=== PATIENT | male | born 1960 | race African-American/Black ===

== ENCOUNTER 2018-03-03 01:04 | Inpatient (IN) | payer MEDICAID ==
[2018-03-03] VITALS (9 sets, daily range): BP systolic 111–124; BP diastolic 66–76
[~2018-03-03] VITALS: Ht 167.6 cm; Wt 56.0 kg
[2018-03-03] MEDS ORDERED: OCTREOTIDE ACETATE 50 MCG/ML 1ML IV STA (02:50)
[2018-03-03] MEDS ORDERED: PANTOPRAZOLE SODIUM 40 MG/VIAL IV STA (02:50)
[2018-03-03] MEDS ORDERED: SODIUM CHLORIDE 0.9% 1,000 ML IV ONE (02:50)
[2018-03-03 06:00] LABS: HEMATOCRIT. 33.6 % (42.0-52.0); HEMOGLOBIN. 10.7 g/dL (14.0-18.0); MEAN CORPUSCULAR HEMOGLOBIN 28.2 pg (28.0-32.0); MEAN CORPUSCULAR VOLUME 88.6 fL (80.0-94.0); MEAN PLATELET VOLUME 8.4 fl (7.4-10.4); PLATELET 259 x1000/uL (130-400); RED CELL DISTRIBUTION WIDTH 15.8 % (11.6-14.6)
[2018-03-03 06:08] LABS: INR 1.1; PROTHROMBIN TIME 11.4 sec (9.4-11.6)
[2018-03-03 06:09] LABS: CHLORIDE 104 mEq/L (98-107)
[2018-03-03] MEDS ORDERED: PANTOPRAZOLE SODIUM 40 MG/VIAL IV ONE (06:45)
[2018-03-03 07:01] LABS: PLATELET ESTIMATE NORMAL
[2018-03-03] MEDS ORDERED: LEVOFLOXACIN 750MG PREMIX 150 ML IV ONE (07:30)
[2018-03-03] MEDS ORDERED: DOCUSATE SODIUM 100MG CAPSULE PO PRN (10:30)
[2018-03-03] MEDS ORDERED: CLONIDINE 0.1MG TABLET PO PRN (10:30)
[2018-03-03] MEDS ORDERED: ACETAMINOPHEN 650MG SUPP PR PRN (10:30)
[2018-03-03] MEDS ORDERED: MORPHINE SULFATE 4 MG/ML CPJ (NOT FOR IM USE) IV PRN (11:00)
[2018-03-03] MEDS: HYDROCODONE/ACETAMINOPHEN 5/325MG TABLET PO PRN (11:54)
[2018-03-03] MEDS: DEXT 5%/0.45% NACL 1000ML 1,000 ML IV SCH (11:55)
[2018-03-03] MEDS ORDERED: RACEPINEPHRINE 2.25% 0.5ML NEB VIAL HHN PRN (16:00)
[2018-03-03] MEDS: ONDANSETRON HCL 4MG/2ML VIAL IV PRN (16:35)
[2018-03-03] MEDS: HYDROCODONE/ACETAMINOPHEN 10/325MG TABLET PO PRN (16:36)
[2018-03-03 16:52] LABS: CREATINE KINASE 38 IU/L (39-308)
[2018-03-03 17:12] LABS: CREATINE KINASE MB FRACTION < 0.5 ng/mL (0.5-3.6)
[2018-03-03] MEDS ORDERED: SODIUM CHLORIDE 10% FOR INH 15ML VIAL NEB INH NR (18:00)
[2018-03-03] MEDS ORDERED: VANCOMYCIN 1250MG in DEXTROSE 5% WATER 250ML IV NR (18:30)
[2018-03-03] MEDS: PIPERACILLIN/TAZ 3.375G PREMIX 50 ML IV SCH ×2 (18:53→23:15)
[2018-03-03 19:17] LABS: CLARITY URINE CLEAR (CLEAR); COLOR URINE YELLOW (YELLOW); KETONES URINE NEGATIVE (NEGATIVE); LEUKOCYTE ESTERASE URINE NEGATIVE (NEGATIVE); NITRITE URINE NEGATIVE (NEGATIVE); OCCULT BLOOD URINE NEGATIVE (NEGATIVE); PH URINE 8.5 (4.5-8.0); PROTEIN URINE NEGATIVE (NEGATIVE); SPECIFIC GRAVITY URINE 1.016 (1.005-1.030); UROBILINOGEN URINE 0.2 E.U./dL (0.2-1.0)
[2018-03-03 19:51] LABS: *AMPHETAMINES SCREEN URINE NEGATIVE (NEGATIVE); *BARBITURATES SCREEN URINE NEGATIVE (NEGATIVE); *BENZODIAZEPINES SCREEN URINE NEGATIVE (NEGATIVE); *COCAINE SCREEN URINE NEGATIVE (NEGATIVE); METHADONE URINE SCREEN NEGATIVE (NEGATIVE); OPIATES URINE SCREEN PRESUMTIVE POSITIVE (NEGATIVE)
[2018-03-03 19:52] LABS: CANNABINOID URINE SCREEN NEGATIVE (NEGATIVE); PHENCYCLIDINE URINE SCREEN NEGATIVE (NEGATIVE)
[2018-03-04] VITALS (14 sets, daily range): BP systolic 86–126; BP diastolic 57–80
[2018-03-04 00:06] LABS: CREATINE KINASE 39 IU/L (39-308)
[2018-03-04 00:07] LABS: CREATINE KINASE MB FRACTION < 0.5 ng/mL (0.5-3.6)
[2018-03-04] MEDS: DEXT 5%/0.45% NACL 1000ML 1,000 ML IV SCH ×3 (01:09→18:46)
[2018-03-04] MEDS: LORAZEPAM 2MG/ML CPJ IV PRN (01:32)
[2018-03-04] MEDS: VANCOMYCIN 750 MG PREMIX 150 ML IV SCH ×3 (02:08→19:07)
[2018-03-04] MEDS: PIPERACILLIN/TAZ 3.375G PREMIX 50 ML IV SCH ×4 (05:00→23:10)
[2018-03-04] MEDS: PANTOPRAZOLE SODIUM 40 MG/VIAL IV SCH (08:13)
[2018-03-04] MEDS: HYDROCODONE/ACETAMINOPHEN 5/325MG TABLET PO PRN ×2 (08:19→13:25)
[2018-03-04] MEDS: GUAIFENESIN 200MG/10ML SUGAR FREE UDC PO PRN (13:35)
[2018-03-04] MEDS: HYDROCODONE/ACETAMINOPHEN 10/325MG TABLET PO PRN ×2 (19:07→23:10)
[2018-03-05] VITALS (14 sets, daily range): BP systolic 91–143; BP diastolic 50–78
[2018-03-05] MEDS: VANCOMYCIN 750 MG PREMIX 150 ML IV SCH ×2 (03:18→10:56)
[2018-03-05] MEDS: PIPERACILLIN/TAZ 3.375G PREMIX 50 ML IV SCH ×4 (06:37→23:02)
[2018-03-05] MEDS: HYDROCODONE/ACETAMINOPHEN 10/325MG TABLET PO PRN ×4 (06:45→21:04)
[2018-03-05 09:01] LABS: HEMATOCRIT. 29.4 % (42.0-52.0); HEMOGLOBIN. 9.7 g/dL (14.0-18.0); MEAN CORPUSCULAR VOLUME 88.2 fL (80.0-94.0); MEAN PLATELET VOLUME 8.1 fl (7.4-10.4); PLATELET 187 x1000/uL (130-400); RED BLOOD CELL COUNT 3.33 mill/uL (4.7-6.1); RED CELL DISTRIBUTION WIDTH 16.2 % (11.6-14.6)
[2018-03-05 09:15] LABS: CHLORIDE 105 mEq/L (98-107)
[2018-03-05] MEDS: PANTOPRAZOLE SODIUM 40 MG/VIAL IV SCH (09:22)
[2018-03-05 09:24] LABS: LDL CHOLESTEROL 37 mg/dL (5-100)
[2018-03-05 09:25] LABS: PHOSPHORUS 3.9 mg/dL (2.5-4.9)
[2018-03-05 09:27] LABS: HDL CHOLESTEROL 33 mg/dL (40-59)
[2018-03-05 09:28] LABS: T4 FREE 1.37 ng/dL (0.76-1.46); VANCOMYCIN TROUGH 25.5 ug/mL (5.0-10.0)
[2018-03-05] MEDS ORDERED: POLYETHYLENE GLYCOL 3350 (17GM) 1 DOSE PACK PO PRN (12:00)
[2018-03-05 13:23] LABS: PLATELET ESTIMATE NORMAL
[2018-03-05] MEDS ORDERED: IOHEXOL-300 100 ML BOTTLE ONE (15:35)
[2018-03-05] MEDS: DEXT 5%/0.45% NACL 1000ML 1,000 ML IV SCH (16:00)
[2018-03-05] MEDS: VANCOMYCIN 1 G PREMIX 200 ML IV SCH (21:05)
[2018-03-05] MEDS: LORAZEPAM 2MG/ML CPJ IV PRN (22:50)
[2018-03-06] VITALS (18 sets, daily range): BP systolic 92–165; BP diastolic 53–74
[2018-03-06] MEDS: HYDROCODONE/ACETAMINOPHEN 10/325MG TABLET PO PRN ×2 (03:07→21:01)
[2018-03-06] MEDS: PIPERACILLIN/TAZ 3.375G PREMIX 50 ML IV SCH ×3 (05:44→17:15)
[2018-03-06] MEDS: DEXT 5%/0.45% NACL 1000ML 1,000 ML IV SCH (05:44)
[2018-03-06] MEDS: ACETAMINOPHEN 650MG/20.3ML UDC GT PRN ×2 (05:50→20:11)
[2018-03-06 06:30] LABS: HEMATOCRIT. 27.8 % (42.0-52.0); HEMOGLOBIN. 9.1 g/dL (14.0-18.0); MEAN CORPUSCULAR HEMOGLOBIN 29.2 pg (28.0-32.0); MEAN CORPUSCULAR VOLUME 89.5 fL (80.0-94.0); MEAN PLATELET VOLUME 8.5 fl (7.4-10.4); PLATELET 164 x1000/uL (130-400); RED BLOOD CELL COUNT 3.11 mill/uL (4.7-6.1); RED CELL DISTRIBUTION WIDTH 15.9 % (11.6-14.6)
[2018-03-06 07:06] LABS: CHLORIDE 105 mEq/L (98-107)
[2018-03-06] MEDS: VANCOMYCIN 1 G PREMIX 200 ML IV SCH ×2 (08:31→20:11)
[2018-03-06] MEDS: PANTOPRAZOLE SODIUM 40 MG/VIAL IV SCH (08:31)
[2018-03-06 10:30] LABS: NUCLEATED RED BLOOD CELLS 1 /100 WBC; PLATELET ESTIMATE NORMAL
[2018-03-06] MEDS: HYDROCODONE/ACETAMINOPHEN 5/325MG TABLET PO PRN ×2 (12:01→17:16)
[2018-03-06] MEDS: GUAIFENESIN 200MG/10ML SUGAR FREE UDC PO PRN (20:11)
[2018-03-07] VITALS (14 sets, daily range): BP systolic 97–116; BP diastolic 46–69
[2018-03-07] MEDS: PIPERACILLIN/TAZ 3.375G PREMIX 50 ML IV SCH ×5 (00:05→23:41)
[2018-03-07] MEDS: LORAZEPAM 2MG/ML CPJ IV PRN (00:06)
[2018-03-07] MEDS: HYDROCODONE/ACETAMINOPHEN 10/325MG TABLET PO PRN ×4 (00:49→23:59)
[2018-03-07] MEDS: DEXT 5%/0.45% NACL 1000ML 1,000 ML IV SCH ×2 (02:30→15:34)
[2018-03-07 06:26] LABS: BASOPHILS % 0.3 % (0.0-2.0); EOSINOPHILS % 0.2 % (0.0-5.0); HEMATOCRIT. 29.6 % (42.0-52.0); HEMOGLOBIN. 9.8 g/dL (14.0-18.0); LYMPHOCYTES % 20.8 % (20.0-50.0); MEAN CORPUSCULAR HEMOGLOBIN 29.3 pg (28.0-32.0); MEAN CORPUSCULAR VOLUME 88.9 fL (80.0-94.0); MEAN PLATELET VOLUME 8.9 fl (7.4-10.4); MONOCYTES % 12.3 % (2.0-8.0); NEUTROPHILS % 66.4 % (40.0-76.0); PLATELET 177 x1000/uL (130-400); RED BLOOD CELL COUNT 3.33 mill/uL (4.7-6.1); RED CELL DISTRIBUTION WIDTH 16.1 % (11.6-14.6)
[2018-03-07 07:00] LABS: CHLORIDE 108 mEq/L (98-107)
[2018-03-07] MEDS: VANCOMYCIN 1 G PREMIX 200 ML IV SCH (08:21)
[2018-03-07] MEDS: PANTOPRAZOLE SODIUM 40 MG/VIAL IV SCH (08:21)
[2018-03-07] MEDS: HYDROCODONE/ACETAMINOPHEN 5/325MG TABLET PO PRN ×2 (11:05→20:04)
[2018-03-07] MEDS: ACETAMINOPHEN 650MG/20.3ML UDC GT PRN (11:42)
[2018-03-07] MEDS ORDERED: IOHEXOL-350 100 ML BOTTLE ONE (23:17)
[2018-03-07] MEDS: GUAIFENESIN 200MG/10ML SUGAR FREE UDC PO PRN (23:58)
[2018-03-08] VITALS (12 sets, daily range): BP systolic 107–132; BP diastolic 59–94
[2018-03-08] MEDS: PIPERACILLIN/TAZ 3.375G PREMIX 50 ML IV SCH ×3 (05:03→17:35)
[2018-03-08] MEDS: GUAIFENESIN 200MG/10ML SUGAR FREE UDC PO PRN ×3 (05:03→20:58)
[2018-03-08] MEDS: HYDROCODONE/ACETAMINOPHEN 5/325MG TABLET PO PRN ×2 (05:04→09:44)
[2018-03-08] MEDS: DEXT 5%/0.45% NACL 1000ML 1,000 ML IV SCH ×2 (05:04→17:26)
[2018-03-08 07:30] LABS: HEMATOCRIT. 28.3 % (42.0-52.0); HEMOGLOBIN. 9.1 g/dL (14.0-18.0); MEAN PLATELET VOLUME 8.9 fl (7.4-10.4); PLATELET 193 x1000/uL (130-400); RED BLOOD CELL COUNT 3.15 mill/uL (4.7-6.1); RED CELL DISTRIBUTION WIDTH 16.2 % (11.6-14.6)
[2018-03-08 07:34] LABS: CHLORIDE 108 mEq/L (98-107)
[2018-03-08 07:45] LABS: PHOSPHORUS 2.9 mg/dL (2.5-4.9)
[2018-03-08] MEDS: PANTOPRAZOLE SODIUM 40 MG/VIAL IV SCH (09:16)
[2018-03-08] MEDS: MORPHINE SULFATE 4 MG/ML CPJ (NOT FOR IM USE) IV PRN ×2 (11:36→15:44)
[2018-03-08] MEDS: ACETAMINOPHEN 650MG/20.3ML UDC GT PRN (17:35)
[2018-03-08] MEDS: HYDROCODONE/ACETAMINOPHEN 10/325MG TABLET PO PRN (20:50)
[2018-03-09] VITALS (13 sets, daily range): BP systolic 104–142; BP diastolic 62–125
[2018-03-09] MEDS: PIPERACILLIN/TAZ 3.375G PREMIX 50 ML IV SCH ×5 (00:19→23:03)
[2018-03-09] MEDS: HYDROCODONE/ACETAMINOPHEN 10/325MG TABLET PO PRN ×5 (01:13→22:49)
[2018-03-09] MEDS: MORPHINE SULFATE 4 MG/ML CPJ (NOT FOR IM USE) IV PRN ×4 (01:19→19:49)
[2018-03-09] MEDS: PANTOPRAZOLE SODIUM 40 MG/VIAL IV SCH (08:58)
[2018-03-09] MEDS: DEXT 5%/0.45% NACL 1000ML 1,000 ML IV SCH ×2 (08:59→17:15)
[2018-03-09 12:42] LABS: PLATELET ESTIMATE NORMAL
[2018-03-09 16:43] LABS: CHLORIDE 105 mEq/L (98-107)
[2018-03-09 16:54] LABS: PHOSPHORUS 3.2 mg/dL (2.5-4.9)
[2018-03-09] MEDS: GUAIFENESIN 200MG/10ML SUGAR FREE UDC PO PRN (19:38)
[2018-03-09] MEDS: DIPHENHYDRAMINE 50MG/ML VIAL IV PRN (22:48)
[2018-03-10] VITALS (14 sets, daily range): BP systolic 103–134; BP diastolic 50–83
[2018-03-10] MEDS: GUAIFENESIN 200MG/10ML SUGAR FREE UDC PO PRN ×3 (04:39→19:13)
[2018-03-10] MEDS: MORPHINE SULFATE 4 MG/ML CPJ (NOT FOR IM USE) IV PRN ×5 (04:42→23:13)
[2018-03-10] MEDS: PIPERACILLIN/TAZ 3.375G PREMIX 50 ML IV SCH ×4 (05:26→23:23)
[2018-03-10] MEDS: DEXT 5%/0.45% NACL 1000ML 1,000 ML IV SCH ×2 (05:43→10:50)
[2018-03-10] MEDS: PANTOPRAZOLE SODIUM 40 MG/VIAL IV SCH (08:02)
[2018-03-10] MEDS: ACETAMINOPHEN 650MG/20.3ML UDC GT PRN ×2 (10:49→16:53)
[2018-03-10] MEDS: HYDROCODONE/ACETAMINOPHEN 10/325MG TABLET PO PRN (19:16)
[2018-03-11] VITALS (10 sets, daily range): BP systolic 107–137; BP diastolic 60–80
[2018-03-11] MEDS: DEXT 5%/0.45% NACL 1000ML 1,000 ML IV SCH ×2 (00:54→18:15)
[2018-03-11] MEDS: MORPHINE SULFATE 4 MG/ML CPJ (NOT FOR IM USE) IV PRN ×4 (02:35→18:02)
[2018-03-11] MEDS: ACETAMINOPHEN 650MG/20.3ML UDC GT PRN ×2 (04:16→13:20)
[2018-03-11] MEDS: PIPERACILLIN/TAZ 3.375G PREMIX 50 ML IV SCH ×2 (05:08→11:32)
[2018-03-11] MEDS: DIPHENHYDRAMINE 50MG/ML VIAL IV PRN ×2 (06:51→23:44)
[2018-03-11] MEDS: PANTOPRAZOLE SODIUM 40 MG/VIAL IV SCH (08:59)
[2018-03-11] MEDS: MAGNESIUM/ALUMINUM HYDROXIDE/SIMETHICONE 30ML UDC PO PRN (18:11)
[2018-03-11] MEDS: HYDROCODONE/ACETAMINOPHEN 10/325MG TABLET PO PRN (20:36)
[2018-03-11] MEDS: GUAIFENESIN 200MG/10ML SUGAR FREE UDC PO PRN (23:44)
[2018-03-12] VITALS (7 sets, daily range): BP systolic 115–129; BP diastolic 3–83
[2018-03-12] MEDS: HYDROCODONE/ACETAMINOPHEN 10/325MG TABLET PO PRN ×2 (06:00→20:29)
[2018-03-12] MEDS: ACETAMINOPHEN 650MG/20.3ML UDC GT PRN ×2 (08:48→15:02)
[2018-03-12 09:05] LABS: HEMATOCRIT. 27.9 % (42.0-52.0); HEMOGLOBIN. 9.1 g/dL (14.0-18.0); MEAN CORPUSCULAR HEMOGLOBIN 29.3 pg (28.0-32.0); MEAN CORPUSCULAR VOLUME 89.4 fL (80.0-94.0); MEAN PLATELET VOLUME 8.9 fl (7.4-10.4); PLATELET 324 x1000/uL (130-400); RED BLOOD CELL COUNT 3.12 mill/uL (4.7-6.1); RED CELL DISTRIBUTION WIDTH 16.9 % (11.6-14.6)
[2018-03-12 10:29] LABS: CHLORIDE 105 mEq/L (98-107)
[2018-03-12 10:52] LABS: PLATELET ESTIMATE NORMAL
[2018-03-12] MEDS: MORPHINE SULFATE 4 MG/ML CPJ (NOT FOR IM USE) IV PRN ×2 (12:39→18:31)
[2018-03-12] MEDS: MAGNESIUM/ALUMINUM HYDROXIDE/SIMETHICONE 30ML UDC PO PRN (18:31)
[2018-03-12] MEDS: DEXT 5%/0.45% NACL 1000ML 1,000 ML IV SCH ×2 (18:31→20:00)
[2018-03-12] MEDS: DIPHENHYDRAMINE 50MG/ML VIAL IV PRN (20:28)
[2018-03-12] MEDS: GUAIFENESIN 200MG/10ML SUGAR FREE UDC PO PRN (20:28)
[2018-03-13] VITALS: BP 119/70
[2018-03-13] MEDS: HYDROCODONE/ACETAMINOPHEN 5/325MG TABLET PO PRN ×2 (01:00→06:13)
[2018-03-13] MEDS: GUAIFENESIN 200MG/10ML SUGAR FREE UDC PO PRN (01:08)
[2018-03-13 04:00] VITALS: BP 123/73
[2018-03-13 07:49] LABS: HEMATOCRIT. 29.8 % (42.0-52.0); HEMOGLOBIN. 9.7 g/dL (14.0-18.0); MEAN CORPUSCULAR HEMOGLOBIN 29.2 pg (28.0-32.0); MEAN CORPUSCULAR VOLUME 90.1 fL (80.0-94.0); MEAN PLATELET VOLUME 8.8 fl (7.4-10.4); PLATELET 360 x1000/uL (130-400); RED BLOOD CELL COUNT 3.31 mill/uL (4.7-6.1); RED CELL DISTRIBUTION WIDTH 16.3 % (11.6-14.6)
[2018-03-13 07:50] VITALS: BP 115/75
[2018-03-13 08:24] LABS: CHLORIDE 103 mEq/L (98-107)
[2018-03-13] MEDS: DEXT 5%/0.45% NACL 1000ML 1,000 ML IV SCH (09:16)
[2018-03-13] MEDS: ACETAMINOPHEN 650MG/20.3ML UDC GT PRN ×3 (09:30→21:36)
[2018-03-13 10:26] LABS: PLATELET ESTIMATE NORMAL
[2018-03-13 11:50] VITALS: BP 110/72
[2018-03-13] MEDS: DIPHENHYDRAMINE 50MG/ML VIAL IV PRN (13:56)
[2018-03-13 15:45] VITALS: BP 100/76
[2018-03-13 20:00] VITALS: BP 111/73
[2018-03-13] MEDS: ALPRAZOLAM 0.5 MG TABLET PO PRN (20:33)
[2018-03-14] VITALS: BP 127/79
[2018-03-14] MEDS: DIPHENHYDRAMINE 50MG/ML VIAL IV PRN (02:48)
[2018-03-14] MEDS: MAGNESIUM/ALUMINUM HYDROXIDE/SIMETHICONE 30ML UDC PO PRN ×2 (02:48→22:20)
[2018-03-14] MEDS: DEXT 5%/0.45% NACL 1000ML 1,000 ML IV SCH ×2 (02:48→09:40)
[2018-03-14 04:00] VITALS: BP 122/76
[2018-03-14] MEDS: ALPRAZOLAM 0.5 MG TABLET PO PRN (05:22)
[2018-03-14 08:00] VITALS: BP 128/77
[2018-03-14] MEDS: MORPHINE SULFATE 4 MG/ML CPJ (NOT FOR IM USE) IV PRN ×2 (09:42→14:51)
[2018-03-14] MEDS: GUAIFENESIN 200MG/10ML SUGAR FREE UDC PO PRN ×2 (09:48→22:20)
[2018-03-14 12:00] VITALS: BP 118/73
[2018-03-14] MEDS: ACETAMINOPHEN 650MG/20.3ML UDC GT PRN ×2 (12:24→22:20)
[2018-03-14] MEDS: LORAZEPAM 1MG TABLET GT PRN (13:45)
[2018-03-14] MEDS ORDERED: NA PHOS,M-B/NA PHOS,DI-BA ENEMA 118ML PR PRN (15:00)
[2018-03-14 16:12] VITALS: BP 109/72
[2018-03-14] MEDS: OXYCODONE HCL/ACETAMINOPHEN 5/325MG TABLET PO PRN (18:06)
[2018-03-14 20:00] VITALS: BP 107/69
[2018-03-15] VITALS: BP 150/61
[2018-03-15] MEDS: OXYCODONE HCL/ACETAMINOPHEN 5/325MG TABLET PO PRN ×2 (00:43→08:12)
[2018-03-15 04:00] VITALS: BP 123/78
[2018-03-15 08:00] VITALS: BP 124/77
[2018-03-15 12:00] VITALS: BP 112/76
[2018-03-15] MEDS: MORPHINE SULFATE 4 MG/ML CPJ (NOT FOR IM USE) IV PRN (12:09)
[2018-03-15] MEDS: OXYCODONE HCL/ACETAMINOPHEN 5/325MG TABLET PO SCH ×2 (13:42→19:10)
[2018-03-15] MEDS: MAGNESIUM/ALUMINUM HYDROXIDE/SIMETHICONE 30ML UDC PO PRN (13:54)
[2018-03-15 16:00] VITALS: BP 119/75
[2018-03-15 20:00] VITALS: BP 119/77
[2018-03-15] MEDS: LORAZEPAM 1MG TABLET GT PRN (22:08)
[2018-03-16] VITALS: BP 110/75
[2018-03-16] MEDS: OXYCODONE HCL/ACETAMINOPHEN 5/325MG TABLET PO SCH ×4 (00:29→17:39)
[2018-03-16 04:00] VITALS: BP 106/71
[2018-03-16 08:31] VITALS: BP 99/62
[2018-03-16 11:40] VITALS: BP 115/78
[2018-03-16] MEDS: MORPHINE SULFATE 4 MG/ML CPJ (NOT FOR IM USE) IV PRN ×2 (11:50→16:45)
[2018-03-16 20:00] VITALS: BP 123/70
[2018-03-16] MEDS: LORAZEPAM 1MG TABLET GT PRN (22:44)
[2018-03-17] VITALS: BP 125/83
[2018-03-17] MEDS: OXYCODONE HCL/ACETAMINOPHEN 5/325MG TABLET PO SCH ×4 (00:35→18:35)
[2018-03-17 04:00] VITALS: BP 105/74
[2018-03-17 08:00] VITALS: BP 108/74
[2018-03-17 12:00] VITALS: BP 117/81
[2018-03-17 16:00] VITALS: BP 130/76
[2018-03-17 20:00] VITALS: BP 113/74
[2018-03-17] MEDS: MORPHINE SULFATE 4 MG/ML CPJ (NOT FOR IM USE) IV PRN (21:22)
[2018-03-18] VITALS: BP 120/80
[2018-03-18] MEDS: OXYCODONE HCL/ACETAMINOPHEN 5/325MG TABLET PO SCH ×4 (01:24→18:16)
[2018-03-18 04:00] VITALS: BP 127/77
[2018-03-18 08:00] VITALS: BP 114/73
[2018-03-18] MEDS: MORPHINE SULFATE 4 MG/ML CPJ (NOT FOR IM USE) IV PRN ×2 (09:47→15:26)
[2018-03-18 12:00] VITALS: BP 109/73
[2018-03-18 16:00] VITALS: BP 117/72
[2018-03-18 20:00] VITALS: BP 118/77
[2018-03-18] MEDS: ACETAMINOPHEN 650MG/20.3ML UDC GT PRN (21:01)
[2018-03-19] VITALS: BP 110/74
[2018-03-19] MEDS: OXYCODONE HCL/ACETAMINOPHEN 5/325MG TABLET PO SCH ×5 (00:22→18:29)
[2018-03-19 04:00] VITALS: BP 130/83
[2018-03-19 08:00] VITALS: BP 110/81
[2018-03-19 12:00] VITALS: BP 110/77
[2018-03-19 16:00] VITALS: BP 116/79
[2018-03-19 20:00] VITALS: BP 118/84
[2018-03-19] MEDS: ACETAMINOPHEN 325MG TABLET PO PRN (21:38)
[2018-03-19] MEDS: IPRATROPIUM/ALBUTEROL 0.5-3(2.5)MG/3ML NEB INH PRN (22:48)
[2018-03-20] VITALS (9 sets, daily range): BP systolic 103–120; BP diastolic 70–84
[2018-03-20] MEDS: OXYCODONE HCL/ACETAMINOPHEN 5/325MG TABLET PO SCH ×4 (00:26→21:22)
[2018-03-20] MEDS: IPRATROPIUM/ALBUTEROL 0.5-3(2.5)MG/3ML NEB INH PRN (03:11)
[2018-03-20] MEDS ORDERED: MAGNESIUM/ALUMINUM HYDROXIDE/SIMETHICONE 30ML UDC PO NR (15:30)
[2018-03-21] VITALS (7 sets, daily range): BP systolic 108–127; BP diastolic 74–86
[2018-03-21] MEDS: ACETAMINOPHEN 325MG TABLET PO PRN (00:40)
[2018-03-21] MEDS: OXYCODONE HCL/ACETAMINOPHEN 5/325MG TABLET PO SCH ×5 (03:56→21:39)
[2018-03-21 09:02] LABS: BASOPHILS % 0.6 % (0.0-2.0); EOSINOPHILS % 5.9 % (0.0-5.0); HEMOGLOBIN. 11.2 g/dL (14.0-18.0); LYMPHOCYTES % 20.7 % (20.0-50.0); MEAN CORPUSCULAR HEMOGLOBIN 29.2 pg (28.0-32.0); MEAN CORPUSCULAR VOLUME 91.6 fL (80.0-94.0); MEAN PLATELET VOLUME 9.8 fl (7.4-10.4); MONOCYTES % 12.9 % (2.0-8.0); NEUTROPHILS % 59.9 % (40.0-76.0); PLATELET 370 x1000/uL (130-400); RED BLOOD CELL COUNT 3.82 mill/uL (4.7-6.1); RED CELL DISTRIBUTION WIDTH 15.8 % (11.6-14.6)
[2018-03-21 09:17] LABS: CHLORIDE 109 mEq/L (98-107)
[2018-03-22] VITALS: BP 115/77
[2018-03-22] MEDS: ACETAMINOPHEN 650MG/20.3ML UDC GT PRN (00:30)
[2018-03-22] MEDS: OXYCODONE HCL/ACETAMINOPHEN 5/325MG TABLET PO SCH ×4 (03:40→21:54)
[2018-03-22 04:00] VITALS: BP 120/68
[2018-03-22 08:00] VITALS: BP 126/82
[2018-03-22 11:32] VITALS: BP 104/74
[2018-03-22 16:00] VITALS: BP 123/78
[2018-03-22] MEDS: MAGNESIUM/ALUMINUM HYDROXIDE/SIMETHICONE 30ML UDC PO PRN (17:06)
[2018-03-22 20:00] VITALS: BP 123/80
[2018-03-23] VITALS: BP 99/69
[2018-03-23] MEDS: ACETAMINOPHEN 650MG/20.3ML UDC GT PRN (00:23)
[2018-03-23 04:00] VITALS: BP 139/82
[2018-03-23] MEDS: OXYCODONE HCL/ACETAMINOPHEN 5/325MG TABLET PO SCH ×4 (04:00→20:54)
[2018-03-23 08:00] VITALS: BP 99/70
[2018-03-23 12:00] VITALS: BP 108/76
[2018-03-23 16:21] VITALS: BP 103/72
[2018-03-23 20:00] VITALS: BP 117/78
[2018-03-24] VITALS: BP 112/76
[2018-03-24] MEDS: OXYCODONE HCL/ACETAMINOPHEN 5/325MG TABLET PO SCH ×4 (01:38→20:24)
[2018-03-24 04:00] VITALS: BP 109/74
[2018-03-24] MEDS: ACETAMINOPHEN 325MG TABLET PO PRN ×3 (06:20→23:53)
[2018-03-24 08:00] VITALS: BP 98/72
[2018-03-24] MEDS: ONDANSETRON HCL 4MG/2ML VIAL IV PRN ×2 (09:44→16:04)
[2018-03-24 12:00] VITALS: BP 121/78
[2018-03-24 16:00] VITALS: BP 157/64
[2018-03-24 20:00] VITALS: BP 150/52
[2018-03-25] VITALS: BP 103/71
[2018-03-25] MEDS: OXYCODONE HCL/ACETAMINOPHEN 5/325MG TABLET PO SCH ×4 (03:06→21:21)
[2018-03-25] MEDS: ONDANSETRON HCL 4MG/2ML VIAL IV PRN (03:24)
[2018-03-25 04:00] VITALS: BP 102/67
[2018-03-25] MEDS: ACETAMINOPHEN 325MG TABLET PO PRN ×2 (06:04→13:21)
[2018-03-25 08:00] VITALS: BP 106/68
[2018-03-25 12:00] VITALS: BP 100/69
[2018-03-25 16:00] VITALS: BP 101/72
[2018-03-25] MEDS: DIPHENHYDRAMINE 50MG/ML VIAL IV PRN ×2 (18:45→23:50)
[2018-03-25 20:00] VITALS: BP 107/71
[2018-03-26] VITALS: BP 108/73
[2018-03-26] MEDS: ACETAMINOPHEN 650MG/20.3ML UDC GT PRN ×2 (02:04→14:24)
[2018-03-26 04:00] VITALS: BP 108/67
[2018-03-26 08:00] VITALS: BP 102/74
[2018-03-26] MEDS: ACETAMINOPHEN 325MG TABLET PO PRN (08:57)
[2018-03-26] MEDS: DIPHENHYDRAMINE 50MG/ML VIAL IV PRN ×2 (09:12→14:22)
[2018-03-26 12:00] VITALS: BP 94/66
[2018-03-26 16:00] VITALS: BP 95/72
[2018-03-26] MEDS: KETOROLAC 15MG/ML VIAL IV PRN (19:25)
[2018-03-26 20:00] VITALS: BP 99/67
[2018-03-27] VITALS: BP 98/75
[2018-03-27] MEDS: DIPHENHYDRAMINE 50MG/ML VIAL IV PRN ×2 (00:35→21:01)
[2018-03-27 04:00] VITALS: BP 104/71
[2018-03-27] MEDS: KETOROLAC 15MG/ML VIAL IV PRN ×3 (04:14→19:11)
[2018-03-27] MEDS: ACETAMINOPHEN 325MG TABLET PO PRN (06:35)
[2018-03-27 07:47] VITALS: BP 90/63
[2018-03-27 08:07] LABS: BASOPHILS % 0.5 % (0.0-2.0); EOSINOPHILS % 2.9 % (0.0-5.0); HEMATOCRIT. 34.2 % (42.0-52.0); HEMOGLOBIN. 11.2 g/dL (14.0-18.0); LYMPHOCYTES % 27.1 % (20.0-50.0); MEAN CORPUSCULAR HEMOGLOBIN 29.4 pg (28.0-32.0); MEAN CORPUSCULAR VOLUME 90.3 fL (80.0-94.0); MEAN PLATELET VOLUME 10.2 fl (7.4-10.4); MONOCYTES % 14.6 % (2.0-8.0); NEUTROPHILS % 54.9 % (40.0-76.0); PLATELET 370 x1000/uL (130-400); RED BLOOD CELL COUNT 3.79 mill/uL (4.7-6.1); RED CELL DISTRIBUTION WIDTH 14.3 % (11.6-14.6)
[2018-03-27 08:19] LABS: CHLORIDE 106 mEq/L (98-107)
[2018-03-27] MEDS ORDERED: SODIUM CHLORIDE 0.9% 1,000 ML IV SCH (11:00)
[2018-03-27] MEDS: METOCLOPRAMIDE HCL 10MG/2ML VIAL IV SCH ×2 (11:31→21:01)
[2018-03-27] MEDS: SODIUM CHLORIDE 0.9% 1,000 ML IV SCH (11:32)
[2018-03-27 12:01] VITALS: BP 100/77
[2018-03-27] MEDS ORDERED: METOCLOPRAMIDE HCL 10MG/2ML VIAL IV SCH (14:00)
[2018-03-27 16:00] VITALS: BP 101/67
[2018-03-27 20:00] VITALS: BP 95/63
[2018-03-27] MEDS: OXYCODONE HCL/ACETAMINOPHEN 5/325MG TABLET PO PRN (23:05)
[2018-03-28] VITALS: BP 102/76
[2018-03-28] MEDS: ACETAMINOPHEN 325MG TABLET PO PRN (00:31)
[2018-03-28] MEDS: SODIUM CHLORIDE 0.9% 1,000 ML IV SCH ×2 (02:35→17:37)
[2018-03-28 04:00] VITALS: BP 98/60
[2018-03-28] MEDS: KETOROLAC 15MG/ML VIAL IV PRN ×3 (04:58→21:03)
[2018-03-28] MEDS: DIPHENHYDRAMINE 50MG/ML VIAL IV PRN (05:05)
[2018-03-28] MEDS: METOCLOPRAMIDE HCL 10MG/2ML VIAL IV SCH ×2 (05:05→14:56)
[2018-03-28 07:10] LABS: BASOPHILS % 0.6 % (0.0-2.0); EOSINOPHILS % 3.5 % (0.0-5.0); HEMATOCRIT. 34.9 % (42.0-52.0); HEMOGLOBIN. 10.8 g/dL (14.0-18.0); LYMPHOCYTES % 21.9 % (20.0-50.0); MEAN CORPUSCULAR HEMOGLOBIN 28.5 pg (28.0-32.0); MEAN CORPUSCULAR VOLUME 91.9 fL (80.0-94.0); MEAN PLATELET VOLUME 10.3 fl (7.4-10.4); MONOCYTES % 14.6 % (2.0-8.0); NEUTROPHILS % 59.4 % (40.0-76.0); PLATELET 325 x1000/uL (130-400); RED CELL DISTRIBUTION WIDTH 14.4 % (11.6-14.6)
[2018-03-28 07:22] LABS: CHLORIDE 109 mEq/L (98-107)
[2018-03-28] MEDS ORDERED: DIATR MEGLU/DIATRIZOATE SOLN 120ML ONE (07:34)
[2018-03-28 08:00] VITALS: BP 102/71
[2018-03-28] MEDS ORDERED: DIATR MEGLU/DIATRIZOATE SOLN 30ML PO SCH (09:00)
[2018-03-28] MEDS: OXYCODONE HCL/ACETAMINOPHEN 5/325MG TABLET PO PRN (09:33)
[2018-03-28 12:00] VITALS: BP 105/70
[2018-03-28] MEDS ORDERED: BISACODYL 10MG SUPP PR NR (12:00)
[2018-03-28 16:00] VITALS: BP 109/74
[2018-03-28] MEDS: POTASSIUM CHLORIDE 20MEQ TABLET SR PO SCH (17:36)
[2018-03-28 20:00] VITALS: BP 101/61
[2018-03-29] VITALS: BP 99/62
[2018-03-29] MEDS: METOCLOPRAMIDE HCL 10MG/2ML VIAL IV SCH ×4 (02:03→22:35)
[2018-03-29] MEDS: ACETAMINOPHEN 325MG TABLET PO PRN (02:12)
[2018-03-29 04:00] VITALS: BP 96/58
[2018-03-29] MEDS: KETOROLAC 15MG/ML VIAL IV PRN ×2 (06:38→22:36)
[2018-03-29 08:00] VITALS: BP 97/63
[2018-03-29] MEDS: DOCUSATE SODIUM 100MG CAPSULE PO SCH ×2 (08:50→09:00)
[2018-03-29] MEDS: POTASSIUM CHLORIDE 20MEQ TABLET SR PO SCH (08:50)
[2018-03-29] MEDS ORDERED: BISACODYL 10MG SUPP PR PRN (09:00)
[2018-03-29] MEDS: ONDANSETRON HCL 4MG/2ML VIAL IV PRN (11:00)
[2018-03-29] MEDS: ACETAMINOPHEN 650MG/20.3ML UDC GT PRN ×2 (11:01→17:37)
[2018-03-29] MEDS: DIPHENHYDRAMINE 50MG/ML VIAL IV PRN (11:15)
[2018-03-29 12:00] VITALS: BP 91/58
[2018-03-29 12:21] LABS: CHLORIDE 113 mEq/L (98-107)
[2018-03-29 12:28] LABS: BASOPHILS % 0.4 % (0.0-2.0); EOSINOPHILS % 3.7 % (0.0-5.0); HEMATOCRIT. 31.7 % (42.0-52.0); HEMOGLOBIN. 10.1 g/dL (14.0-18.0); LYMPHOCYTES % 19.2 % (20.0-50.0); MEAN CORPUSCULAR VOLUME 91.2 fL (80.0-94.0); MONOCYTES % 12.1 % (2.0-8.0); NEUTROPHILS % 64.6 % (40.0-76.0); PLATELET 295 x1000/uL (130-400); RED BLOOD CELL COUNT 3.48 mill/uL (4.7-6.1); RED CELL DISTRIBUTION WIDTH 14.1 % (11.6-14.6)
[2018-03-29 16:00] VITALS: BP 94/55
[2018-03-29] MEDS: SODIUM CHLORIDE 0.9% 1,000 ML IV SCH ×2 (17:07→23:54)
[2018-03-29 20:00] VITALS: BP 125/78
[2018-03-30] VITALS: BP 131/76
[2018-03-30 04:00] VITALS: BP 127/68
[2018-03-30] MEDS: OXYCODONE HCL/ACETAMINOPHEN 5/325MG TABLET PO PRN (04:19)
[2018-03-30 08:00] VITALS: BP 114/72
[2018-03-30] MEDS: DOCUSATE SODIUM 100MG CAPSULE PO SCH (08:56)
[2018-03-30] MEDS: POTASSIUM CHLORIDE 20MEQ TABLET SR PO SCH (08:56)
[2018-03-30 12:00] VITALS: BP 128/77
[2018-03-30] MEDS: LIPASE/PROTEASE/AMYLASE 4,200/14,200/24,600 UNITS CAP DR PO SCH ×2 (12:32→17:27)
[2018-03-30 16:00] VITALS: BP 137/88
[2018-03-30] MEDS: KETOROLAC 15MG/ML VIAL IV PRN ×2 (16:12→16:39)
[2018-03-30 20:00] VITALS: BP 112/74
[2018-03-30] MEDS: ACETAMINOPHEN 325MG TABLET PO PRN (20:39)
[2018-03-31] VITALS: BP 128/62
[2018-03-31] MEDS: KETOROLAC 15MG/ML VIAL IV PRN ×2 (00:27→09:53)
[2018-03-31 04:00] VITALS: BP 115/68
[2018-03-31 06:37] LABS: BASOPHILS % 0.4 % (0.0-2.0); EOSINOPHILS % 2.7 % (0.0-5.0); HEMOGLOBIN. 11.1 g/dL (14.0-18.0); MEAN CORPUSCULAR HEMOGLOBIN 29.2 pg (28.0-32.0); MEAN CORPUSCULAR VOLUME 91.8 fL (80.0-94.0); MEAN PLATELET VOLUME 9.7 fl (7.4-10.4); MONOCYTES % 10.3 % (2.0-8.0); NEUTROPHILS % 64.6 % (40.0-76.0); PLATELET 315 x1000/uL (130-400); RED BLOOD CELL COUNT 3.81 mill/uL (4.7-6.1); RED CELL DISTRIBUTION WIDTH 14.2 % (11.6-14.6)
[2018-03-31 06:55] LABS: CHLORIDE 116 mEq/L (98-107)
[2018-03-31 08:00] VITALS: BP 114/76
[2018-03-31] MEDS: DOCUSATE SODIUM 100MG CAPSULE PO SCH ×3 (09:00→09:08)
[2018-03-31] MEDS: POTASSIUM CHLORIDE 20MEQ TABLET SR PO SCH ×2 (09:06→09:22)
[2018-03-31] MEDS: LIPASE/PROTEASE/AMYLASE 4,200/14,200/24,600 UNITS CAP DR PO SCH ×3 (09:06→17:50)
[2018-03-31 12:00] VITALS: BP 113/79
[2018-03-31] MEDS ORDERED: IOHEXOL-300 50 ML BOTTLE IV ONE (14:08)
[2018-03-31] MEDS ORDERED: LIDOCAINE HCL 2% JELLY 5ML ONE (14:08)
[2018-03-31] MEDS ORDERED: LIDOCAINE HCL/PF 1% 10 MG/ML 5ML VIAL ONE (14:08)
[2018-03-31] MEDS ORDERED: SODIUM BICARBONATE 4% (2.4MEQ) 5ML VIAL IV ONE (14:08)
[2018-03-31 16:00] VITALS: BP 110/74
[2018-03-31 20:00] VITALS: BP 109/76
[2018-04-01] VITALS: BP 111/73
[2018-04-01] MEDS: TRAMADOL 50MG TABLET PO PRN ×3 (00:08→15:04)
[2018-04-01] MEDS ORDERED: ACETAMINOPHEN 650MG/20.3ML UDC GT PRN (00:15)
[2018-04-01] MEDS: DEXT 5%/0.45% NACL 1000ML 1,000 ML IV SCH ×2 (00:50→10:15)
[2018-04-01 04:00] VITALS: BP 120/74
[2018-04-01] MEDS: LIPASE/PROTEASE/AMYLASE 4,200/14,200/24,600 UNITS CAP DR PO SCH ×3 (07:50→17:50)
[2018-04-01 08:00] VITALS: BP 116/72
[2018-04-01 09:27] LABS: BASOPHILS % 0.4 % (0.0-2.0); EOSINOPHILS % 2.3 % (0.0-5.0); HEMATOCRIT. 35.5 % (42.0-52.0); HEMOGLOBIN. 11.1 g/dL (14.0-18.0); MEAN CORPUSCULAR HEMOGLOBIN 28.5 pg (28.0-32.0); MEAN CORPUSCULAR VOLUME 91.5 fL (80.0-94.0); MEAN PLATELET VOLUME 9.3 fl (7.4-10.4); MONOCYTES % 10.9 % (2.0-8.0); NEUTROPHILS % 67.4 % (40.0-76.0); PLATELET 294 x1000/uL (130-400); RED BLOOD CELL COUNT 3.88 mill/uL (4.7-6.1); RED CELL DISTRIBUTION WIDTH 14.3 % (11.6-14.6)
[2018-04-01 09:42] LABS: CHLORIDE 117 mEq/L (98-107)
[2018-04-01 12:00] VITALS: BP 100/67
[2018-04-01] MEDS ORDERED: HYDROCODONE/ACETAMINOPHEN 5/325MG TABLET PO PRN (15:45)
[2018-04-01 16:00] VITALS: BP 113/77
[2018-04-01] MEDS ORDERED: MORPHINE SULFATE 10MG/5ML ORAL SOLN UDC PO PRN (17:45)
[2018-04-01] MEDS ORDERED: MORP10SO15 PO (17:48)
[2018-04-01] MEDS ORDERED: MSCON15 PO (17:48)
[2018-04-01] MEDS: MORPHINE SULFATE 15MG TABLET SR PO SCH (19:37)
[2018-04-01 20:00] VITALS: BP 124/78
[2018-04-02] VITALS: BP 132/80
[2018-04-02] MEDS: DEXT 5%/0.45% NACL 1000ML 1,000 ML IV SCH ×2 (03:30→17:35)
[2018-04-02 04:00] VITALS: BP 113/73
[2018-04-02] MEDS: MORPHINE SULFATE 15MG TABLET SR PO SCH ×2 (05:17→17:34)
[2018-04-02 08:00] VITALS: BP 116/73
[2018-04-02] MEDS: POTASSIUM CHLORIDE 20MEQ TABLET SR PO SCH (08:17)
[2018-04-02] MEDS: LIPASE/PROTEASE/AMYLASE 4,200/14,200/24,600 UNITS CAP DR PO SCH ×3 (08:17→17:50)
[2018-04-02 12:00] VITALS: BP 117/81
[2018-04-02 16:00] VITALS: BP 121/75
[2018-04-02 20:00] VITALS: BP 116/63
[2018-04-02] MEDS: ACETAMINOPHEN 325MG TABLET PO PRN (20:04)
[2018-04-03] VITALS: BP 132/76
[2018-04-03 04:00] VITALS: BP 133/76
[2018-04-03] MEDS: MORPHINE SULFATE 15MG TABLET SR PO SCH ×3 (05:06→18:46)
[2018-04-03] MEDS: DEXT 5%/0.45% NACL 1000ML 1,000 ML IV SCH (05:17)
[2018-04-03 08:00] VITALS: BP 114/75
[2018-04-03] MEDS: POTASSIUM CHLORIDE 20MEQ TABLET SR PO SCH (10:53)
[2018-04-03] MEDS: LIPASE/PROTEASE/AMYLASE 4,200/14,200/24,600 UNITS CAP DR PO SCH ×3 (10:53→17:42)
[2018-04-03] MEDS: ACETAMINOPHEN 325MG TABLET PO PRN ×2 (10:54→15:55)
[2018-04-03 12:00] VITALS: BP 117/74
[2018-04-03 16:00] VITALS: BP 120/75
[2018-04-03] MEDS: KETOROLAC 15MG/ML VIAL IV PRN (18:55)
[2018-04-03 20:00] VITALS: BP 108/71
[2018-04-04] VITALS: BP 99/65
[2018-04-04] MEDS: KETOROLAC 15MG/ML VIAL IV PRN ×2 (02:50→11:27)
[2018-04-04] MEDS: DEXT 5%/0.45% NACL 1000ML 1,000 ML IV SCH ×2 (02:57→09:48)
[2018-04-04 04:00] VITALS: BP 117/69
[2018-04-04] MEDS: MORPHINE SULFATE 15MG TABLET SR PO SCH (06:00)
[2018-04-04] MEDS: ACETAMINOPHEN 325MG TABLET PO PRN (07:26)
[2018-04-04 07:56] VITALS: BP 116/72
[2018-04-04] MEDS: LIPASE/PROTEASE/AMYLASE 4,200/14,200/24,600 UNITS CAP DR PO SCH ×3 (09:48→18:51)
[2018-04-04] MEDS: POTASSIUM CHLORIDE 20MEQ TABLET SR PO SCH (09:48)
[2018-04-04 12:34] VITALS: BP 107/68
[2018-04-04 16:20] VITALS: BP 112/67
[2018-04-04] MEDS ORDERED: MORPHINE SULFATE 15MG TABLET SR PO SCH (18:00)
[2018-04-04] MEDS: HYDROMORPHONE HCL 2MG TABLET PO PRN (18:52)
[2018-04-04 20:00] VITALS: BP 116/71
[2018-04-04] MEDS: MORPHINE SULFATE 10MG/5ML ORAL SOLN UDC GT SCH (22:07)
[2018-04-05] VITALS: BP 98/63
[2018-04-05] MEDS: MORPHINE SULFATE 10MG/5ML ORAL SOLN UDC GT SCH ×6 (01:26→22:30)
[2018-04-05 04:00] VITALS: BP 96/63
[2018-04-05] MEDS: LIPASE/PROTEASE/AMYLASE 4,200/14,200/24,600 UNITS CAP DR PO SCH ×3 (07:50→17:50)
[2018-04-05 08:00] VITALS: BP 107/64
[2018-04-05] MEDS: POTASSIUM CHLORIDE 20MEQ TABLET SR PO SCH (08:22)
[2018-04-05] MEDS: HYDROMORPHONE HCL 2MG TABLET PO PRN (08:48)
[2018-04-05] MEDS: DEXT 5%/0.45% NACL 1000ML 1,000 ML IV SCH ×2 (10:31→22:42)
[2018-04-05 12:00] VITALS: BP 104/61
[2018-04-05 16:00] VITALS: BP 112/72
[2018-04-05 20:00] VITALS: BP 106/65
[2018-04-06] VITALS: BP 105/66
[2018-04-06] MEDS: HYDROMORPHONE HCL 2MG TABLET PO PRN (01:01)
[2018-04-06 04:00] VITALS: BP 109/67
[2018-04-06] MEDS: MORPHINE SULFATE 10MG/5ML ORAL SOLN UDC GT SCH ×5 (04:23→21:15)
[2018-04-06] MEDS: ACETAMINOPHEN 325MG TABLET PO PRN ×2 (04:23→08:34)
[2018-04-06 08:00] VITALS: BP 102/66
[2018-04-06] MEDS: POTASSIUM CHLORIDE 20MEQ TABLET SR PO SCH (08:33)
[2018-04-06] MEDS: LIPASE/PROTEASE/AMYLASE 4,200/14,200/24,600 UNITS CAP DR PO SCH ×3 (08:34→18:06)
[2018-04-06 12:00] VITALS: BP 103/63
[2018-04-06] MEDS: DEXT 5%/0.45% NACL 1000ML 1,000 ML IV SCH (14:29)
[2018-04-06 16:00] VITALS: BP 115/65
[2018-04-06 20:00] VITALS: BP 105/67
[2018-04-07] VITALS: BP 98/56
[2018-04-07] MEDS: ACETAMINOPHEN 325MG TABLET PO PRN ×4 (00:09→20:26)
[2018-04-07] MEDS: MORPHINE SULFATE 10MG/5ML ORAL SOLN UDC GT SCH ×6 (01:27→22:52)
[2018-04-07 04:00] VITALS: BP 110/67
[2018-04-07] MEDS: DEXT 5%/0.45% NACL 1000ML 1,000 ML IV SCH ×2 (06:12→20:25)
[2018-04-07 08:00] VITALS: BP 111/67
[2018-04-07] MEDS: POTASSIUM CHLORIDE 20MEQ TABLET SR PO SCH (08:26)
[2018-04-07] MEDS: LIPASE/PROTEASE/AMYLASE 4,200/14,200/24,600 UNITS CAP DR PO SCH ×3 (08:26→18:29)
[2018-04-07 12:00] VITALS: BP 96/57
[2018-04-07 16:00] VITALS: BP 98/61
[2018-04-07 20:00] VITALS: BP 93/59
[2018-04-07 21:39] LABS: CHLORIDE 103 mEq/L (98-107)
[2018-04-08] VITALS: BP 86/55
[2018-04-08] MEDS: MORPHINE SULFATE 10MG/5ML ORAL SOLN UDC GT SCH ×6 (02:27→22:49)
[2018-04-08 04:00] VITALS: BP 105/62
[2018-04-08] MEDS: DEXT 5%/0.45% NACL 1000ML 1,000 ML IV SCH (06:10)
[2018-04-08 08:00] VITALS: BP 98/61
[2018-04-08] MEDS: LIPASE/PROTEASE/AMYLASE 4,200/14,200/24,600 UNITS CAP DR PO SCH ×3 (09:31→18:24)
[2018-04-08] MEDS: POTASSIUM CHLORIDE 20MEQ TABLET SR PO SCH (09:32)
[2018-04-08] MEDS: HYDROMORPHONE HCL 2MG TABLET PO PRN (09:32)
[2018-04-08 12:00] VITALS: BP 99/64
[2018-04-08 16:00] VITALS: BP 108/66
[2018-04-08 20:00] VITALS: BP 98/54
[2018-04-08] MEDS: ACETAMINOPHEN 325MG TABLET PO PRN (20:42)
[2018-04-09] VITALS: BP 88/48
[2018-04-09] MEDS: MORPHINE SULFATE 10MG/5ML ORAL SOLN UDC GT SCH ×4 (02:00→14:12)
[2018-04-09 04:00] VITALS: BP 96/64
[2018-04-09 08:00] VITALS: BP 92/56
[2018-04-09] MEDS: POTASSIUM CHLORIDE 20MEQ TABLET SR PO SCH (08:52)
[2018-04-09] MEDS: LIPASE/PROTEASE/AMYLASE 4,200/14,200/24,600 UNITS CAP DR PO SCH ×2 (08:52→14:11)
[2018-04-09 08:59] LABS: BASOPHILS % 0.4 % (0.0-2.0); EOSINOPHILS % 2.4 % (0.0-5.0); HEMATOCRIT. 31.1 % (42.0-52.0); HEMOGLOBIN. 10.1 g/dL (14.0-18.0); LYMPHOCYTES % 20.6 % (20.0-50.0); MEAN CORPUSCULAR HEMOGLOBIN 28.7 pg (28.0-32.0); MEAN CORPUSCULAR VOLUME 88.6 fL (80.0-94.0); MEAN PLATELET VOLUME 8.8 fl (7.4-10.4); MONOCYTES % 12.6 % (2.0-8.0); PLATELET 296 x1000/uL (130-400); RED BLOOD CELL COUNT 3.51 mill/uL (4.7-6.1); RED CELL DISTRIBUTION WIDTH 13.8 % (11.6-14.6)
[2018-04-09 09:22] VITALS: BP 92/56
[2018-04-09 10:38] LABS: CHLORIDE 102 mEq/L (98-107)
[2018-04-09 14:12] VITALS: BP 92/56
== END 2018-04-09 14:55 | DRG 720 ==
LOC: ER 01:04 → 5EST 07:26 → ENRESERV 07:52 → 5EST 15:33 → 5WST 03-11 09:46 → 6EST 03-25 12:19
PROVIDERS: ADMIT Internal Medicine; ATTEND Internal Medicine
PROC: 0D20XUZ Change Feeding Device in Upper Intestinal Tract, External Approach (ICD-10-PCS; principal; 2018-03-31)
DX: A41.9 Sepsis, unspecified organism (principal); J96.20 Acute and chronic respiratory failure, unspecified whether with hypoxia or hypercapnia; J69.0 Pneumonitis due to inhalation of food and vomit; K92.0 Hematemesis; E44.0 Moderate protein-calorie malnutrition; I95.89 Other hypotension; K80.20 Calculus of gallbladder without cholecystitis without obstruction; E16.2 Hypoglycemia, unspecified; J44.9 Chronic obstructive pulmonary disease, unspecified; G89.29 Other chronic pain; D64.9 Anemia, unspecified; R13.10 Dysphagia, unspecified; I65.23 Occlusion and stenosis of bilateral carotid arteries; J38.7 Other diseases of larynx; K56.41 Fecal impaction; K94.23 Gastrostomy malfunction; Y83.8 Other surgical procedures as the cause of abnormal reaction of the patient, or of later complication, without mention of misadventure at the time of the procedure; E87.0 Hyperosmolality and hypernatremia; E86.0 Dehydration; D72.825 Bandemia; E83.42 Hypomagnesemia; N32.89 Other specified disorders of bladder; Z92.3 Personal history of irradiation; Z85.818 Personal history of malignant neoplasm of other sites of lip, oral cavity, and pharynx; Z68.1 Body mass index [BMI] 19.9 or less, adult; Z87.11 Personal history of peptic ulcer disease; Z92.21 Personal history of antineoplastic chemotherapy; Y92.89 Other specified places as the place of occurrence of the external cause; Z87.891 Personal history of nicotine dependence
CPT/HCPCS: 36415; 49450; 70491; 70498; 71045; 71260; 74018; 74176; 80048; 80053; 80061; 80202; 80305; 81003; 82270; 82550; 82553; 82947; 83605; 83690; 83735; 84100; 84145; 84439; 84443; 84481; 84484; 85025; 85044; 85610; 85730; 85732; 86850; 86900; 87040; 87086; 92610; 93005; 93970; 93971; 94640; 96374; 96375; 96376; 97116; 97162; 97166; 97530; 99285; C1769; C1893; C9113; J1200; J1885; J1956; J2060; J2270; J2354; J2405; J2543; J2765; J3370; J3490; J7030; J7040; J7050; J7060; J7131; J7620; Q9963; Q9967